=== PATIENT | male | born 1990 | race African-American/Black ===

== ENCOUNTER 2018-11-09 18:04 | Emergency (ER) | payer OTHER ==
[2018-11-09] MEDS ORDERED: Lidocaine 1% 10 ML MDV INJECT ONE (18:14)
[2018-11-09] MEDS ORDERED: Acetaminophen 325 MG Tab PO ONE (18:15)
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
[2018-11-09] MEDS ORDERED: Sodium Chloride 0.9% 10 ML Syringe FLUSH PRN (19:20)
[2018-11-09] MEDS ORDERED: Iopamidol 612 MG/ML 100 ML Bottle IVPUSH ONE (19:25)
--- NOTE | 2018-11-09 19:37 | CT ---
Head CT Technique: Multiple axial sections through the brain were obtained. Intravenous contrast was not utilized. Findings: Mild soft tissue swelling is seen within posterior left scalp. Evidence of soft tissue air compatible with skin disruption. Ventricles along with basal cisterns and sulci over the convexities are within normal limits. No abnormal parenchymal densities are seen. No evidence of intracranial hemorrhage. No midline shift or mass effect is seen. Bone window settings were reviewed which show no acute calvarial abnormality. Visualized sinuses show minimal mucosal thickening within the posterior left ethmoid sinus which is incidental. Impression: 1. Scalp injury as noted above. 2. Incidental sinus findings. 3. Nothing acute is seen intracranially Diagnostic code #3
--- NOTE | 2018-11-09 20:12 | CT ---
CT chest Technique: Multiple axial sections through the chest were obtained. Intravenous contrast was utilized. Findings: Mediastinum and hilar regions show no adenopathy or mass. Slight soft tissue density is noted within superior mediastinum which is felt to be due to residual thymic tissue. No axillary adenopathy seen. Bilateral gynecomastia is incidentally noted. Small hiatal hernia is seen. Lungs are clear. No acute parenchymal changes seen. No pleural effusions or pneumothorax is seen. 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 No rib fracture is seen. Vertebral body heights and disc spaces are maintained. No discrete fracture is seen within the thoracic spine. Impression: 1. Bilateral gynecomastia. 2. 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 3. Nothing acute is seen on CT study of the chest. Diagnostic code #2 CT abdomen and pelvis Technique: Multiple axial sections were obtained from above the dome of the diaphragm inferiorly through the pubic symphysis. Intravenous contrast was utilized. No oral contrast has been given. Findings: Artifact is noted from the patient's arms along his side. Liver and spleen shows no discrete abnormality. Small hiatal hernia is again noted. Adrenal glands show no abnormality. Kidneys show symmetric contrast enhancement without hydronephrosis or mass. Pancreas is normal. Aorta shows no aneurysm. No retroperitoneal adenopathy or mesenteric abnormalities are seen. Appendix not definitely visualized. No pelvic mass or adenopathy is seen. No free fluid or inflammatory change is seen. Bone window settings were reviewed which shows the vertebral body heights and disc spaces to be maintained. No discrete lumbar spine fracture is seen. No fracture is seen within the pelvis or within the hips. Impression: 1. Nothing acute is seen on CT study of the abdomen and pelvis. Diagnostic code #1
--- NOTE | 2018-11-09 20:12 | CT ---
CT cervical spine Technique: Multiple axial sections through the cervical spine were obtained. Reconstructed sagittal and coronal images were reviewed. Comparison: No prior cervical spine imaging is available. Findings: Posterior skull base is intact. Vertebral bodies and posterior arches are intact. No fracture is seen. No bony central or bony neural foraminal stenosis is seen. No abnormal subluxation is seen. Impression: 1. Nothing acute is seen on CT study of the cervical spine. Diagnostic code #1
--- NOTE | 2018-11-10 07:04 | CR ---
Left wrist: Two views of the left wrist were obtained. Comparison: No previous study. Soft tissue swelling is seen. Joint spaces are preserved. No fracture or other bony abnormality is seen. Impression: 1. Soft tissue swelling. 2. Two-view left wrist study is otherwise unremarkable. Diagnostic code #2
--- NOTE | 2018-11-10 07:07 | CR ---
Chest: Two views of the chest were obtained. Comparison: No prior chest x-ray. Heart size and mediastinum are within normal limits. Lungs are clear. Left scapular fracture is again noted. Bony structures are otherwise unremarkable. Impression: 1. Left scapular fracture. Nothing acute is otherwise seen on two-view chest x-ray. Diagnostic code #2
--- NOTE | 2018-11-10 07:21 | CR ---
Right knee: Four views of the right knee were obtained. Comparison: No prior knee study. Medial and lateral joint compartments are maintained in height. No joint effusion is seen. Cortical thickening is partially seen within the proximal tibia presumably due to old more distal injury. No acute fracture or other bony abnormality is seen. Impression: 1. Nothing acute seen on right knee exam. Other incidental finding. Diagnostic code #2
--- NOTE | 2018-11-10 07:24 | CR ---
Left shoulder: Three views of the left shoulder were obtained. Comparison: No previous study. Fracture is identified within the scapula involving the glenoid. Fracture line is widened by about 4.6 mm within the glenoid and on the Y scapular view fracture is widened by about 1.2 cm within the scapular body. Proximal humerus appears intact. No additional abnormality is seen. Impression: 1. Mildly displaced scapular fracture as described above. Diagnostic code #3
== END 2018-11-09 21:00 | disposition home or self-care (01) ==
LOC: JD.ED 18:04
DX: S42.142A Displaced fracture of glenoid cavity of scapula, left shoulder, initial encounter for closed fracture (principal); S01.01XA Laceration without foreign body of scalp, initial encounter; S61.511A Laceration without foreign body of right wrist, initial encounter; V89.2XXA Person injured in unspecified motor-vehicle accident, traffic, initial encounter; Y92.410 Unspecified street and highway as the place of occurrence of the external cause
CPT/HCPCS: 12002; 36415; 70450; 71046; 71260; 72125; 73030; 73100; 73564; 74177; 80053; 81001; 85025; 99285; A9270; Q9967; 12001